=== PATIENT | male | born 1970 | race Caucasian/White ===

== ENCOUNTER 2016-06-23 20:31 | Emergency (ER) | payer MEDICAID | END 2016-06-23 21:53 | disposition home or self-care (01) | LOC: D.ER 20:31 | DX: S80.11XA Contusion of right lower leg, initial encounter (principal); W20.8XXA Other cause of strike by thrown, projected or falling object, initial encounter; Y93.89 Activity, other specified; Y92.89 Other specified places as the place of occurrence of the external cause; S87.81XA Crushing injury of right lower leg, initial encounter; F17.200 Nicotine dependence, unspecified, uncomplicated ==